=== PATIENT | male | born 1970 | race Caucasian/White ===

== ENCOUNTER 2022-11-02 13:15 | Emergency (ER) | payer BC, SELFPAY ==
--- NOTE | 2022-11-02 13:17 | ED.GENADULT ---
HPI - General Adult General Chief complaint: Skin/Abscess/Foreign Body Stated complaint: Rash Time Seen by Provider: 11/02/22 13:17 Source: patient Mode of arrival: ambulatory Limitations: no limitations History of Present Illness HPI narrative: 52-year-old male patient presents to the [facility] with complaints of a rash to the right leg that started about 2-3 days ago. Patient states he started having pain down right leg started about 6 days ago and thought it was some sciatica pain and then noticed a rash starting on his right foot that started off small and has gotten progressively worse. Patient states the rash is painful mostly painful on the bottom of his foot where there is the rash. Denies any fevers, body aches or chills. Denies any new lotions soaps or detergents. Related Data Allergies Allergy/AdvReac Type Severity Reaction Status Date / Time NKA AdvReac Mild Other Uncoded 11/02/22 13:26 Review of Systems Review of Systems: CONSTITUTIONAL: Denies fever, chills, or sweats. EYES: Denies visual changes, redness, or discharge. ENT: Denies rhinorrhea, congestion, sore throat, or otalgia. CARDIOVASCULAR: Denies chest pain, palpitations, or edema. RESPIRATORY: Denies cough or dyspnea. GASTROINTESTINAL: Denies abdominal pain, nausea, vomiting, or diarrhea. GENITOURINARY: Denies dysuria or hematuria. SKIN: Positive painful rash to right leg and foot MUSCULOSKELETAL: Denies back pain, joint pain, or myalgia. NEUROLOGIC: Denies headache, numbness, or weakness. PSYCHIATRIC: Denies anxiety or depression. [facility] Past Medical History Medical History (Updated 11/02/22 @ 13:51 by SONIA Ramirez) History of kidney cancer right kidney removal and adrenal gland Comments At the time of my signature I agree with nursing past medical history, surgical, social, and family history. There is no relevant family history pertinent to the presenting complaint. Exam Narrative: GENERAL: Well-appearing, well-nourished, and in no acute distress. HEAD: Normocephalic, atraumatic. EYES: PERRLA and EOMI. ENT: Nares clear, no rhinorrhea or epistaxis. Mucous membranes moist. NECK: Supple. No lymphadenopathy CHEST: Clear to auscultation. No respiratory distress. HEART: Regular rate and rhythm. No murmur heard. Normal peripheral pulses. ABDOMEN: Soft, nontender, nondistended, normal active bowel sounds. EXTREMITIES: Normal range of motion. No edema. SKIN: Warm, dry, patient has blistery rash noted to the right foot, bottom of the foot and along the lateral portion of the foot and to the posterior side of the right lower extremity. No noticeable rash or pain to the back or the abdomen. NEURO: No focal deficits. Alert and oriented x3. Course Course Level of Care: Express Care Visit Vital Signs Vital signs: Vital Signs Temperature 36.6 C 11/02/22 13:27 Pulse Rate 88 11/02/22 13:27 Respiratory Rate 20 11/02/22 13:27 Blood Pressure 147/88 H 11/02/22 13:27 Pulse Oximetry 99 11/02/22 13:27 Oxygen Delivery Room Air 11/02/22 13:27 Temperature 36.6 C 11/02/22 13:27 Pulse Rate 88 11/02/22 13:27 Respiratory Rate 20 11/02/22 13:27 Blood Pressure 147/88 H 11/02/22 13:27 Pulse Oximetry 99 11/02/22 13:27 Oxygen Delivery Room Air 11/02/22 13:27 Vital signs reviewed. The patient has been informed that they may have pre-hypertension or Hypertension based on a BP reading in the department. I recommend that the patient call the primary care provider listed on their discharge instructions or a physician of their choice this week to arrange follow up for further evaluation of possible pre-hypertension or Hypertension Medical Decision Making MDM Narrative Medical decision making narrative: Discussed with patient that the rash looks like shingles it specially the fact that he had pain to the leg before the rash her is pretty typical of shingles infection. Plan of care for patient is dischar
[2022-11-02 13:27] VITALS: BP 147/88; PULSE 88; RESP 20; TEMP 36.6; O2SAT 99
== END 2022-11-02 13:53 | disposition home or self-care (01) ==
PROVIDERS: Emergency Provider Nurse Practitioner Family; PCP Family Medicine
DX: B02.9 Zoster without complications (principal); Z85.528 Personal history of other malignant neoplasm of kidney; Z90.5 Acquired absence of kidney
CPT/HCPCS: 99213; G0463